=== PATIENT | male | born 1945 | race Caucasian/White ===

== ENCOUNTER → 2017-12-29 | Outpatient (CLI) | payer OTHER ==
--- NOTE | 2017-12-29 16:26 | DIAGNOSTIC IMAGING REPORT ---
L-SPINE MIN 4 VIEWS ROUTINE HISTORY: 72 years-old Male POST OP AXIAL BACK PAIN R/P LOSS FIXATION acute low back pain. COMPARISON: None available TECHNIQUE: 4 views of the lumbar spine FINDINGS: Mild levoscoliosis of the lumbar spine. Midline skin michelle are noted. Postoperative changes from laminectomy with posterior interbody joe and screw fusion with discectomy at L3-L4. No evidence of malalignment or hardware complication. No acute fracture or subluxation. There is moderate intervertebral disc space narrowing at L4-L5 and L5-S1 with spondylitic spurring and moderate facet arthropathy. Mild intervertebral disc space narrowing at all 2-L3. There is unchanged alignment with both neutral, flexion and extension views. Calcification of the aorta. No opaque foreign body. There are a few scattered air-fluid levels noted within bowel of the central abdomen. IMPRESSION: 1. No acute fracture or subluxation. 2. Laminectomy with discectomy and posterior interbody joe and screw fusion at L3-L4. No evidence of hardware complication or malalignment. 3. Mild lumbar levoscoliosis. The above report was generated using voice recognition software. It may contain grammatical, syntax or spelling errors. Electronically signed by: Esdras Varner M.D. 12/29/2017 4:24 PM Dictated Date/Time: 12/29/2017 4:22 PM
== END | disposition home or self-care (01) ==
LOC: C.RAD 15:35
PROVIDERS: ATTEND Physical Medicine & Rehabilitation
DX: G89.18 Other acute postprocedural pain (principal); Z98.1 Arthrodesis status